=== PATIENT | female | born 1965 | race African-American/Black ===

== ENCOUNTER → 2018-06-16 | Outpatient (CLI) | payer MEDICARE, OTHER | LOC: M.RAD 09:57 | DX: Z12.31 Encounter for screening mammogram for malignant neoplasm of breast (principal) ==

== ENCOUNTER → 2018-07-21 | Outpatient (CLI) | payer MEDICARE, OTHER | LOC: M.CT 13:08 | DX: R91.1 Solitary pulmonary nodule (principal); J98.4 Other disorders of lung; R18.8 Other ascites; I25.10 Atherosclerotic heart disease of native coronary artery without angina pectoris; N26.1 Atrophy of kidney (terminal) ==

== ENCOUNTER 2018-12-08 11:45 | Emergency (ER) | payer MEDICARE, OTHER ==
[~2018-12-08] VITALS: Ht 160 cm; Wt 59.0 kg
[2018-12-08] MEDS ORDERED: COUMADIN 10MG T10 M1 PO (12:08)
[2018-12-08] MEDS ORDERED: CALCITRATE200 MG PO (12:08)
[2018-12-08] MEDS ORDERED: XANAX 0.5 MG0.5 MG PO (12:08)
[2018-12-08] MEDS ORDERED: PHOSLO667 MG PO (12:08)
[2018-12-08] MEDS ORDERED: TRAZODONE 150150 M1 PO (12:08)
[2018-12-08] MEDS ORDERED: BUTALB-APAP-CA1 EACH PO (12:09)
[2018-12-08] MEDS ORDERED: LIPITOR10 MG PO (12:09)
[2018-12-08] MEDS ORDERED: ZOLOFT25 MG PO (12:09)
[2018-12-08] MEDS ORDERED: CARVEDILOL12.5 MG PO (12:09)
[2018-12-08 13:07] VITALS: BP 148/78
== END 2018-12-08 13:08 | disposition home or self-care (01) ==
LOC: M.ERS 11:45
DX: S09.8XXA Other specified injuries of head, initial encounter (principal); W17.89XA Other fall from one level to another, initial encounter; Y93.72 Activity, wrestling; Y92.89 Other specified places as the place of occurrence of the external cause; Y99.8 Other external cause status

== ENCOUNTER → 2019-01-08 | Outpatient (CLI) | payer MEDICARE, OTHER ==
[~2019-01-08] MED LIST: BUTALB-APAP-CA1 EACH PO; CALCITRATE200 MG PO; CARVEDILOL12.5 MG PO; COUMADIN 10MG T10 M1 PO; LIPITOR10 MG PO; PHOSLO667 MG PO; TRAZODONE 150150 M1 PO; XANAX 0.5 MG0.5 MG PO; ZOLOFT25 MG PO
[2019-01-08 16:14] LABS: ABSOLUTE EOSINOPHILS 0.1 thou/uL (0.0-0.7); ABSOLUTE LYMPHOCYTES 1.4 thou/uL (0.8-5.3); ABSOLUTE MONOCYTES 0.8 thou/uL (0.0-1.2); ABSOLUTE NEUTROPHILS 3.5 thou/uL (1.6-8.1); BASOPHILS 0.6 %; EOSINOPHILS 1.6 %; HEMATOCRIT 35.6 % (37.0-47.0); HEMOGLOBIN 11.7 gm/dL (12.0-15.0); LYMPHOCYTES 23.9 %; MCH 32.1 pg (26.0-34.0); MCHC 32.9 g/dL (28.0-37.0); MCV 97.5 fL (80.0-100.0); MONOCYTES 13.3 %; MPV 7.8 fl. (7.2-11.1); NUCLEATED RBCS 0 /100WBC; PLATELET COUNT* 139 thou/uL (150-400); POLYS 60.6 %; RBC 3.65 mil/uL (4.20-5.00); RDW-CV 16.4 % (10.5-14.5); WBC 5.7 thou/uL (4.0-11.0)
[2019-01-08 16:47] LABS: ALBUMIN 3.2 g/dL (3.4-5.0); CALCIUM 8.4 mg/dL (8.5-10.1); CREATININE 20.1 mg/dL (0.6-1.3); POTASSIUM 3.7 mmol/L (3.5-5.1); TOTAL BILIRUBIN 0.3 mg/dL (<0.1-1.0); TOTAL PROTEIN 6.3 g/dL (6.4-8.2)
== END ==
LOC: M.CT 15:00
PROVIDERS: Nurse Practitioner Family
DX: K80.80 Other cholelithiasis without obstruction (principal); Z94.0 Kidney transplant status; Z95.5 Presence of coronary angioplasty implant and graft

== ENCOUNTER → 2019-04-25 | Outpatient (CLI) | payer MEDICARE, OTHER | LOC: M.CT 14:03 | DX: J90 Pleural effusion, not elsewhere classified (principal); I70.0 Atherosclerosis of aorta; I25.10 Atherosclerotic heart disease of native coronary artery without angina pectoris; R18.8 Other ascites; M25.78 Osteophyte, vertebrae; Z87.898 Personal history of other specified conditions; Z98.890 Other specified postprocedural states ==

== ENCOUNTER → 2019-08-28 | Outpatient (CLI) | payer MEDICARE, OTHER | LOC: M.CT 11:00 | DX: Z01.818 Encounter for other preprocedural examination (principal); N18.6 End stage renal disease; I73.9 Peripheral vascular disease, unspecified; K80.80 Other cholelithiasis without obstruction; K57.30 Diverticulosis of large intestine without perforation or abscess without bleeding; N28.89 Other specified disorders of kidney and ureter; K80.20 Calculus of gallbladder without cholecystitis without obstruction; Z99.2 Dependence on renal dialysis; Z76.82 Awaiting organ transplant status ==

== ENCOUNTER → 2019-09-12 | Outpatient (CLI) | payer MEDICARE, OTHER | LOC: M.RAD 14:00 | DX: Z12.31 Encounter for screening mammogram for malignant neoplasm of breast (principal) ==